=== PATIENT | male | born 1995 | race Caucasian/White ===

== ENCOUNTER 2018-08-30 15:26 | Emergency (ER) | payer BC ==
[2018-08-30 15:56] VITALS: BP 99/79
--- NOTE | 2018-08-30 16:14 | UC ---
General HPI - HPI Summary HPI Summary: 23-year-old male with history of generalized anxiety disorder presents requesting refill of his sertraline. States he moved to this area from [place] approximately 6 months ago but has not establish with a primary care provider as his current job requires him to travel frequently. States he ran out of his medication yesterday and would like to obtain a short-term prescription until he is able to establish with primary care. [facility] he has been taking sertraline 100 mg daily for the past 4 years with good relief from his symptoms. Denies fever, chills, headache, chest pain, palpitations, shortness of breath, abdominal pain, nausea, vomiting, suicidal or homicidal ideations. - History of Current Complaint Chief Complaint: UCMedRefill Stated Complaint: MED REFILL Time Seen by Provider: 08/30/18 16:02 Hx Obtained From: Patient Pain Intensity: 0 - Allergy/Home Medications Allergies/Adverse Reactions: Allergies Allergy/AdvReac Type Severity Reaction Status Date / Time codeine Allergy Vomiting Verified 08/30/18 15:57 PMH/Surg Hx/FS Hx/Imm Hx Psychological History: Anxiety - Surgical History Surgical History: None - Family History Known Family History: Positive: Non-Contributory - Social History Occupation: Employed Full-time Lives: Alone Alcohol Use: Rare Substance Use Type: None Smoking Status (MU): Never Smoked Tobacco Review of Systems All Other Systems Reviewed And Are Negative: Yes Constitutional: Positive: Negative Respiratory: Positive: Negative Cardiovascular: Positive: Negative Gastrointestinal: Positive: Negative Genitourinary: Positive: Negative Musculoskeletal: Positive: Negative Neurological: Positive: Negative Psychological: Positive: Negative Is Patient Immunocompromised?: No Physical Exam - Summary Physical Exam Summary: GENERAL APPEARANCE: Well developed, well nourished, alert and cooperative, and appears to be in no acute distress. CARDIAC: Normal S1 and S2. No S3, S4 or murmurs. Rhythm is regular. There is no peripheral edema, cyanosis or pallor. Extremities are warm and well perfused. Capillary refill is less than 2 seconds. LUNGS: Clear to auscultation without rales, rhonchi, wheezing or diminished breath sounds. ABDOMEN: Positive bowel sounds. Soft, nondistended, nontender. No guarding or rebound. No masses or hepatosplenomegally. MUSKULOSKELETAL: ROM intact to all extremities. No joint erythema or tenderness. Normal muscular development. Normal gait. NEUROLOGICAL: CN II-XII intact. Strength and sensation symmetric and intact throughout. Reflexes 2+ throughout. Cerebellar testing normal. SKIN: Skin normal color, texture and turgor with no lesions or eruptions. PSYCHIATRIC: The patient was able to demonstrate good judgement and reason, without hallucinations, abnormal affect or abnormal behaviors during the examination. Patient is not suicidal. Triage Information Reviewed: Yes Vital Signs: Initial Vital Signs Temp 98.0 F 08/30/18 15:53 Pulse 84 08/30/18 15:53 Resp 20 08/30/18 15:53 BP 99/79 08/30/18 15:53 Pulse Ox 99 08/30/18 15:53 Vital Signs Reviewed: Yes Course/Dx - Course Course Of Treatment: 23-year-old male with history of generalized anxiety disorder presents requesting refill of his sertraline. [facility] he moved to this area from [place] approximately 6 months ago but has not establish with a primary care provider as his current job requires him to travel frequently. [facility] he ran out of his medication yesterday and would like to obtain a short-term prescription until he is able to establish with primary care. [facility] he has been taking sertraline 100 mg daily for the past 4 years with good relief from his symptoms. Denies fever, chills, headache, chest pain, palpitations, shortness of breath, abdominal pain, nausea, vomiting, suicidal or homicidal ideations. Afebrile. Vital signs stable. Overall exam was unremarkable. I discussed with patient that I will provide him with a 30 day supply of his sertraline however it is essential that he establish with a primary care provider within the next 30 days. I have given him the number for the [facility] physician referral service to assist him with establishing with a provider. Patient verbalizes understanding and agrees with plan of care. - Diagnoses Provider Diagnosis: Anxiety disorder Discharge - Sign-Out/Discharge Documenting (check all that apply): Patient Departure All imaging exams completed and their final reports reviewed: No Studies - Discharge Plan Condition: Stable Disposition: HOME Prescriptions: Sertraline* [Zoloft*] 100 mg PO DAILY #30 tab Patient Education Materials: Generalized Anxiety Disorder (ED) Referrals: No Primary Care Phys,[facility]CP [Primary Care Provider] - [facility] PHYSICIAN REFERRAL [Outside] Additional Instructions: I have sent in a 30-day supply of your sertraline to the pharmacy. It is very important that you establish with a primary care provider within 30 days to monitor your symptoms and provide continued prescriptions. I have provided with you with the number for the [facility] physician referral service to assist you with establishing with a primary care provider. - Billing Disposition and Condition Condition: STABLE Disposition: Home - Attestation Statements Provider Attestation: Per institutional requirements, I have reviewed the chart, however, I was not consulted specifically or made aware of this patient by the midlevel provider. I did not personally evaluate, interact with , or disposition this patient.
== END 2018-08-30 16:30 | disposition home or self-care (01) ==
LOC: UCEAST 15:26
DX: F41.9 Anxiety disorder, unspecified (principal); Z88.5 Allergy status to narcotic agent
CPT/HCPCS: 99202; G0463